=== PATIENT | male | born 1985 | race African-American/Black ===

== ENCOUNTER 2018-11-21 17:36 | Emergency (ER) | payer OTHER ==
[~2018-11-21] VITALS: Ht 170.2 cm; Wt 68.0 kg
[2018-11-21] MEDS ORDERED: ROBAXIN 750 MG750 M1 PO (18:31)
[2018-11-21] MEDS ORDERED: IBUPROFEN 800800 M1 PO (18:31)
[2018-11-21] MEDS ORDERED: ACETAMINOPHEN-1 EAC1 PO (18:43)
[2018-11-21 18:56] VITALS: BP 128/69
== END 2018-11-21 18:58 | disposition home or self-care (01) ==
LOC: M.ERS 17:36
DX: M54.5 Low back pain (principal)